=== PATIENT | female | born 1960 | race Caucasian/White ===

== ENCOUNTER 2016-12-30 07:38 | Emergency (ER) | payer OTHER ==
--- NOTE | 2016-12-30 08:54 | ED ---
Florence Monroy Alok, scribed for Kim Torres MD on 12/30/16 at 0809 . Throat Pain/Nasal Congestion - HPI Summary HPI Summary: 56 y/o female presents to the ED for cerumen impaction of both ears since 3 days ago, worsening one day ago. Pt states that her ear wax is worse in the right ear than the left ear and reports decreased hearing. Pt reports last recent illness a few weeks ago for which she was prescribed antibiotics but denies any CLARK, sore throat, cough or rash at this time. - History of Current Complaint Chief Complaint: UCEar Hx Obtained From: Patient Onset/Duration: Gradual Onset, Lasting Days, Still Present Severity: Moderate Cough: None - Allergies/Home Medications Allergies/Adverse Reactions: Allergies Allergy/AdvReac Type Severity Reaction Status Date / Time cold Allergy Intermediate Hives Uncoded 12/30/16 07:50 Home Medications: Home Medications Warfarin Sodium [Coumadin] 1 tab PO QPM 12/30/16 [History Confirmed 12/30/16] PMH/Surg Hx/FS Hx/Imm Hx Endocrine/Hematology History: Denies: Hx Diabetes, Hx Thyroid Disease Cardiovascular History: Denies: Hx Hypertension Respiratory History: Denies: Hx Asthma, Hx Chronic Obstructive Pulmonary Disease (COPD) GI History: Denies: Hx Ulcer Infectious Disease History: No Infectious Disease History: Denies: Hx Hepatitis, Hx Human Immunodeficiency Virus (HIV), History Other Infectious Disease, Traveled Outside the [place] in Last 30 Days - Family History Known Family History: Positive: Diabetes - Social History Alcohol Use: Weekly Substance Use Type: Reports: None Smoking Status (MU): Heavy Every Day Tobacco Smoker Type: Cigarettes Have You Smoked in the Last Year: Yes Review of Systems Negative: Fever ENT: Other - Cerumen impaction both ears All Other Systems Reviewed And Are Negative: Yes Physical Exam - Summary Physical Exam Summary: Appearance: Well-Nourished Eye Exam: Normal ENT Exam: EAC's bilat impaction Respiratory Exam: Chest non-tender, Lungs clear, Normal breath sounds, No respiratory distress, No accessory muscle use Cardiovascular Exam: Normal Cardiovascular: RRR, No Murmur, Pulses Normal - sitting up. heart rate correlates w left radial pulse, Brisk Capillary Refill Abdominal Exam: Normal Abdomen Description: Nontender, No Organomegaly, Soft Bowel Sounds: Present Musculoskeletal Exam: Normal Musculoskeletal: Strength Intact Neurological Exam: Normal: nonfocal, grossly intact Psychological Exam: Normal: conversing easily and appropriately Skin Exam: Normal: no visible or reported rash Triage Information Reviewed: Yes Vital Signs On Initial Exam: Initial Vitals Temp Pulse Resp BP Pulse Ox 97.3 F 81 16 106/74 98 12/30/16 07:52 12/30/16 07:52 12/30/16 07:52 12/30/16 07:52 12/30/16 07:52 Vital Signs Reviewed: Yes Appearance: Positive: Well-Nourished Diagnostics - Vital Signs Vital Signs Temp Pulse Resp BP Pulse Ox 12/30/16 07:52 97.3 F 81 16 106/74 98 - Laboratory Lab Statement: Any lab studies that have been ordered have been reviewed, and results considered in the medical decision making process. Re-Evaluation - Re-Evaluation First Eval Re-Evaluation Time: 08:16 EENT Course/Dx - Course Course Of Treatment: No new problems in CCC. Ears flushed by RN. TM's ok. EAC 's ok. Pt seems pleased with care. Questions answered as posed. - Diagnoses Provider Diagnoses: Impacted cerumen of both ears Discharge - Discharge Plan Condition: Stable Disposition: HOME Patient Education Materials: Cerumen Impaction (ED) Forms: *Work Release Referrals: Aixa Patrick MD [Primary Care Provider] - Additional Instructions: Please follow up with your primary care provider. Seek medical attention for worsening problems in the meantime. The documentation as recorded by the Florence burks Alok accurately reflects the service I personally performed and the decisions made by me, Kim Torres MD.
== END 2016-12-30 08:38 | disposition home or self-care (01) ==
LOC: UCEAST 07:38
DX: H61.23 Impacted cerumen, bilateral (principal); F17.210 Nicotine dependence, cigarettes, uncomplicated; Z79.01 Long term (current) use of anticoagulants
CPT/HCPCS: 69210; 99201; G0463